=== PATIENT | female | born 1975 | race Caucasian/White ===

== ENCOUNTER → 2016-04-13 | Outpatient (CLI) | payer MEDICARE, OTHER ==
--- NOTE | 2016-04-13 08:48 | XR ---
EXAMINATION TYPE: XR knee limited RT DATE OF EXAM: 04/13/2016 8:42 AM CLINICAL HISTORY: pain TECHNIQUE: Two views of the right knee are obtained. COMPARISON: None. FINDINGS: There is no acute fracture/dislocation. The tri-compartment joint spaces appear within no rmal limits. The overlying soft tissue appears unremarkable. IMPRESSION: There is no acute fracture or dislocation. ICD 10 NO FRACTURE, INITIAL EVALUATION
--- NOTE | 2016-04-13 09:13 | MR ---
EXAMINATION TYPE: MR lumbar spine wo con DATE OF EXAM: 04/13/2016 8:19 AM COMPARISON: 07/10/2013 HISTORY: 40-year-old female with lumbago, back and leg pain TECHNIQUE: Multiplanar, multisequence images of the lumbar spine were acquired. Findings: Vertebral body heights are preserved and alignment is maintained. Variable mild desiccation of the intervertebral discs and mild disc bulging. Scattered mild ligamentum flavum thickening. Additional facet arthropathy mid to lower lumbar spine. There is some desiccation and mild disc height loss within the visualized lower thoracic spine as wel l with a stable right paracentral disc protrusion at T11-T12 which minimally contacts and indents the right ventral cord but does not cause any significant spinal canal stenosis. There may be a posterio r annular fissure here as well. The overall size of the disc protrusion is not significantly changed. No suspicious bone marrow replacement. Conus medullaris is normal. At T12-L1, minimal bulging disc without significant canal or foraminal stenosis. At L1-L2, small right paracentral disc protrusion without canal or foraminal stenosis. At L2-L3, very mild bulging disc minimally encroaching onto the bilateral inferior neural foramina. N o significant canal or foraminal stenosis. At L3-L4, minimal bulging discs minimally encroaching onto the inferior right neural foramen. No spin al canal stenosis. At L4-L5, there is bulging disc and facet degenerative change. Minimal bilateral inferior neuroforami nal narrowing without significant spinal canal stenosis. At L5-S1, mild facet degenerative change. No spinal canal or foraminal stenosis. No prevertebral or paravertebral soft tissue abnormality seen. IMPRESSION: 1. Mild multilevel degenerative disc disease with slight interval progression in variable mild disc d esiccation. 2. The degree of mild multilevel disc bulging is relatively similar. These disc bulges cause minimal inferior neural foraminal narrowing as outlined above. 3. No significant spinal canal or neuroforaminal stenosis. 4. A right paracentral disc protrusion at T11-T12 was also present previously abutting and minimally indenting the ventral cord but not causing any mark cord compression or canal compromise. A posterio r annular fissure is present here as well.
== END | disposition home or self-care (01) ==
LOC: RADMRIMAIN 07:44
PROVIDERS: ATTEND Psychiatry & Neurology Pain Medicine
DX: M51.36 Other intervertebral disc degeneration, lumbar region (principal); M51.26 Other intervertebral disc displacement, lumbar region; M51.24 Other intervertebral disc displacement, thoracic region; Z88.5 Allergy status to narcotic agent
CPT/HCPCS: 72148

== ENCOUNTER → 2016-04-23 | Outpatient (CLI) | payer MEDICARE, OTHER ==
[2016-04-23 12:10] LABS: Basophils # (A) 0.1 k/uL (0-0.2); Basophils % (A) 2 %; CH 28.5; CHCM 32.1; Eosinophils # (A) 0.3 k/uL (0-0.7); Eosinophils % (A) 3 %; HCT 45.8 % (34.0-46.0); HDW 2.44; HGB 14.7 gm/dL (11.4-16.0); Luc # (Auto) 0.12; Luc % (Auto) 1; Lymphocytes # (A) 2.8 k/uL (1.0-4.8); Lymphocytes % (A) 30 %; MCH 28.7 pg (25.0-35.0); MCHC 32.1 g/dL (31.0-37.0); MCV 89.4 fL (80.0-100.0); Mean Platelet Volume 8.1; Monocytes # (A) 0.5 k/uL (0-1.0); Monocytes % (A) 5 %; Neutrophils # (A) 5.8 k/uL (1.3-7.7); Neutrophils % (A) 60 %; RBC 5.13 m/uL (3.80-5.40); RDW 13.5 % (11.5-15.5); WBC 9.6 k/uL (3.8-10.6); WBC (Perox) 9.29
[2016-04-23 12:29] LABS: ALT 35 U/L (9-52); AST 20 U/L (14-36); Alkaline Phosphatase 149 U/L (38-126); Anion Gap 10 mmol/L; Blood Urea Nitrogen 9 mg/dL (7-17); C Reactive Protein 20.4 mg/L (<10.0); Calcium 9.8 mg/dL (8.4-10.2); Carbon Dioxide 26 mmol/L (22-30); Chloride 108 mmol/L (98-107); Creatine Kinase 24 U/L (30-135); Glucose 98 mg/dL (74-99); Magnesium 2.2 mg/dL (1.6-2.3); Non-African American GFR(MDRD) >60 (>60 ml/min/1.73 sqM); Sodium 144 mmol/L (137-145); Total Bilirubin 0.4 mg/dL (0.2-1.3); Total Protein 7.2 g/dL (6.3-8.2)
[2016-04-23 12:46] LABS: Hemoglobin A1C 5.7 % (4.2-6.1)
[2016-04-23 13:14] LABS: Vitamin B12 511 pg/mL (239-931)
[2016-04-23 14:02] LABS: Erythrocyte Sedimentation Rate 72 mm/hr (0-20)
[2016-04-26 05:49] LABS: Vitamin E (Alpha Tocopherol) 1554 ug/dL (500-1800)
[2016-04-26 07:40] LABS: Cyclic Citrullinated Pep IgG 11 UNITS (<20)
[2016-04-29 20:04] LABS: Nicotinamide 12 ng/mL; Nicotinic Acid None Detected; Nicotinuric Acid None Detected
[2016-05-02 13:37] LABS: Vitamin K 289 pg/mL (80-1160)
== END | disposition home or self-care (01) ==
LOC: LABWHC1 11:29
PROVIDERS: ATTEND Psychiatry & Neurology Pain Medicine
DX: G89.4 Chronic pain syndrome (principal); M79.7 Fibromyalgia
CPT/HCPCS: 36415; 80053; 82306; 82550; 82607; 83036; 83519; 83735; 84207; 84425; 84446; 84590; 84591; 84597; 85025; 85652; 86140; 86200

== ENCOUNTER 2016-10-07 15:41 | Emergency (ER) | payer MEDICARE, OTHER ==
[2016-10-07 15:53] VITALS: RESP 18
[2016-10-07] MEDS ORDERED: ONDANSETRON ODT 4 MG TAB PO STA (16:20)
[2016-10-07] MEDS ORDERED: HYDROmorphone 1 MG/ML 1 ML SYRINGE IM STA (16:20)
[2016-10-07] MEDS ORDERED: HYDROmorphone 1 MG/ML 1 ML SYRINGE IVP STA ×2 (16:30→17:44)
[2016-10-07] MEDS ORDERED: ONDANSETRON 4 MG/2 ML VIAL IVP STA (16:30)
[2016-10-07 17:00] LABS: Basophils # (A) 0.1 k/uL (0-0.2); Basophils % (A) 1 %; CH 27.9; CHCM 32.5; Eosinophils # (A) 0.3 k/uL (0-0.7); Eosinophils % (A) 2 %; HCT 44.9 % (34.0-46.0); HDW 2.33; Luc # (Auto) 0.14; Luc % (Auto) 1; Lymphocytes # (A) 3.5 k/uL (1.0-4.8); Lymphocytes % (A) 30 %; MCH 28.9 pg (25.0-35.0); MCHC 33.5 g/dL (31.0-37.0); MCV 86.1 fL (80.0-100.0); Mean Platelet Volume 6.9; Monocytes # (A) 0.5 k/uL (0-1.0); Monocytes % (A) 4 %; Neutrophils # (A) 7.2 k/uL (1.3-7.7); Neutrophils % (A) 62 %; RBC 5.21 m/uL (3.80-5.40); RDW 13.4 % (11.5-15.5); WBC 11.7 k/uL (3.8-10.6); WBC (Perox) 11.26
--- NOTE | 2016-10-07 17:00 | ED ---
Head Injury HPI - General Chief complaint: Head Injury Stated complaint: Fall/Head injury Time Seen by Provider: 10/07/16 16:04 Source: patient Mode of arrival: ambulatory Limitations: no limitations - History of Present Illness Initial comments: 40-year-old female fell yesterday about 12:30 PM she was standing on the feet sensory and then she lost her balance and fell from a height of about [address] down and she hit her head on the right side against the wooden coffee table and the right shoulder hit the floor right shoulder flexion and she moves she has a headache and neck hurt when she moves her head from [id number]. She denies loss consciousness she been nauseous no vomiting her vision is clear but she has a headache she has a history and she is unsteady on her feet. She denies any palpitation or chest pain before the fall or even now or shortness of breath no frequency urgency dysuria she is complaining about right ear pain which she thinks is just a bruise she is able to walk she is able to bear weight but of system is Place: home - Related Data Home Medications Medication Instructions Recorded Confirmed HYDROcodone/APAP 10-325MG [[place] 1 tab PO BID PRN 07/16/14 10/07/16 10] Ibuprofen [Motrin] 800 mg PO Q8HR PRN 07/16/14 10/07/16 Topiramate [Topamax] 50 mg PO BID 07/16/14 10/07/16 lamoTRIgine [LaMICtal] 100 mg PO HS 07/16/14 10/07/16 Cyclobenzaprine [Flexeril] 10 mg PO TID PRN 10/07/16 10/07/16 PARoxetine HCL [Paxil Cr] 25 mg PO DAILY 10/07/16 10/07/16 Previous Rx's Medication Instructions Recorded HYDROcodone/APAP 10-325MG [[place] 1 tab PO Q6H PRN #15 tab 10/07/16 10-325] Allergies/Adverse reactions: Allergies Allergy/AdvReac Type Severity Reaction Status Date / Time adhesive Allergy Rash/Hives Verified 10/07/16 16:59 Bleach (Sodium Hypochlorite) Allergy Unknown Verified 10/07/16 16:59 codeine phosphate AdvReac ringing Verified 10/07/16 16:59 [From Tylenol-Codeine #3] ears Review of Systems ROS Statement: Those systems with pertinent positive or pertinent negative responses have been documented in the HPI. ROS Other: All systems not noted in ROS Statement are negative. Past Medical History Past Medical History: Musculoskeletal Disorder Additional Past Medical History / Comment(s): hx. migraines, herniated discs neck & back, frequent sinus infections History of Any Multi-Drug Resistant Organisms: None Reported Past Surgical History: Adenoidectomy, Section, Cholecystectomy, Hysterectomy, Tonsillectomy Additional Past Surgical History / Comment(s): laparoscopy, D & C, sinus surgery Past Anesthesia/Blood Transfusion Reactions: Motion Sickness, Postoperative Nausea & Vomiting (PONV) Past Psychological History: Bipolar Smoking Status: Current every day smoker Past Alcohol Use History: None Reported Past Drug Use History: None Reported - Past Family History Mother Family Medical History: No Reported History General Exam - General Exam Comments Initial Comments: General: The patient is awake and alert, in no distress, and does not appear acutely ill. GCS is 15 Skin: Skin is warm and dry and no rashes or lesions are noted. Eye: Pupils are equal, round and reactive to light, extra-ocular movements are intact; there is normal conjunctiva bilaterally. Ears, nose, mouth and throat: There are moist mucous membranes and no oral lesions. Neck: The neck is supple, there is tenderness over L4 and L5, she is also tender over the right paraspinal area over the right transverse process Cardiovascular: There is a regular rate and rhythm. No murmur, rub or gallop is appreciated. Respiratory: To auscultation bilateral, no wheezing no rhonchi no distress respiratory aguilar noticed Gastrointestinal: Soft, non-distended, non-tender abdomen without masses or organomegaly noted. There is no rebound or guarding present. Bowel sounds are unremarkable. Back: There is no tenderness to palpation in the midline. There is no obvious deformity. Musculoskeletal: Normal ROM, no tenderness, There is no pedal edema. There is no calf tenderness or swelling. No cords were appreciated. She is tender over the right greater trochanter and range of motion at the left hip is quite no pain with flexion and extension or internal or external rotation Neurological: CN II-XII intact, Cranial nerves III through XII are intact. There are no obvious motor or sensory deficits. Coordination appears grossly intact. Speech is normal. Psychiatric: Cooperative, appropriate mood & affect, normal judgment. Limitations: no limitations Course Vital Signs 10/07/16 10/07/16 15:48 18:11 Temperature 99.9 F H Pulse Rate 98 99 Respiratory 18 18 Rate Blood Pressure 136/91 147/89 O2 Sat by Pulse 99 95 Oximetry Disposition reassessed at 1725, CBC and compressive metabolic panel are unremarkable head CT and cervical spine CAT scans are pending at this point Medical Decision Making - Lab Data Result diagrams: 10/07/16 16:40 10/07/16 16:40 Lab Results 10/07/16 10/07/16 Range/Units 16:40 16:40 WBC 11.7 H (3.8-10.6) k/uL RBC 5.21 (3.80-5.40) m/uL Hgb 15.0 (11.4-16.0) gm/dL Hct 44.9 (34.0-46.0) % MCV 86.1 (80.0-100.0) fL MCH 28.9 (25.0-35.0) pg MCHC 33.5 (31.0-37.0) g/dL RDW 13.4 (11.5-15.5) % Plt Count 465 H (150-450) k/uL Neutrophils % 62 % Lymphocytes % 30 % Monocytes % 4 % Eosinophils % 2 % Basophils % 1 % Neutrophils # 7.2 (1.3-7.7) k/uL Lymphocytes # 3.5 (1.0-4.8) k/uL Monocytes # 0.5 (0-1.0) k/uL Eosinophils # 0.3 (0-0.7) k/uL Basophils # 0.1 (0-0.2) k/uL Sodium 140 (137-145) mmol/L Potassium 4.3 (3.5-5.1) mmol/L Chloride 107 (98-107) mmol/L Carbon Dioxide 23 (22-30) mmol/L Anion Gap 10 mmol/L BUN 5 L (7-17) mg/dL Creatinine 0.77 (0.52-1.04) mg/dL Est GFR (MDRD) Af Amer >60 (>60 ml/min/1.73 sqM) Est GFR (MDRD) Non-Af >60 (>60 ml/min/1.73 sqM) Glucose 95 (74-99) mg/dL Calcium 9.5 (8.4-10.2) mg/dL Total Bilirubin 0.4 (0.2-1.3) mg/dL AST 24 (14-36) U/L ALT 39 (9-52) U/L Alkaline Phosphatase 140 H (38-126) U/L Total Protein 7.4 (6.3-8.2) g/dL Albumin 4.3 (3.5-5.0) g/dL Disposition Clinical Impression: Fall, Head injury, Neck injury, Shoulder injury Disposition: HOME SELF-CARE Condition: Good Instructions: Concussion (ED) Prescriptions: HYDROcodone/APAP 10-325MG [[place] 10-325] 1 tab PO Q6H PRN #15 tab PRN Reason: Pain Referrals: Gretchen Page MD [Primary Care Provider] - 1-2 days
[2016-10-07 17:09] LABS: ALT 39 U/L (9-52); AST 24 U/L (14-36); Alkaline Phosphatase 140 U/L (38-126); Anion Gap 10 mmol/L; Blood Urea Nitrogen 5 mg/dL (7-17); Calcium 9.5 mg/dL (8.4-10.2); Carbon Dioxide 23 mmol/L (22-30); Chloride 107 mmol/L (98-107); Glucose 95 mg/dL (74-99); Non-African American GFR(MDRD) >60 (>60 ml/min/1.73 sqM); Potassium 4.3 mmol/L (3.5-5.1); Sodium 140 mmol/L (137-145); Total Bilirubin 0.4 mg/dL (0.2-1.3); Total Protein 7.4 g/dL (6.3-8.2)
--- NOTE | 2016-10-07 17:31 | CT ---
EXAMINATION TYPE: CT brain dominique waterman DATE OF EXAM: 10/07/2016 COMPARISON: NONE HISTORY: Fall with head injury [address] DLP: 1168.5 mGycm Automated exposure control for dose reduction was used. TECHNIQUE: CT scan of the head and cervical spine are performed without contrast. FINDINGS: Ventricles and sulci appear normal. There is no mass effect nor midline shift. There is n o sign of intracranial hemorrhage. The calvarium is intact. There is mild mucosal thickening in the e thmoid air cells. Cervical vertebra have normal spacing and alignment. Posterior elements are intact. Facet joints are intact. The skull base is intact. There is no evidence of a fracture. IMPRESSION: Normal CT scan of the brain. Normal CT scan of the cervical spine.
[2016-10-07] MEDS ORDERED: MAG HYDROX/AL HYDROX/SIMETH 30 ML, HYOSCYAMINE ELIXIR 10 ML, CIMETIDINE HCL 300 MG PO STA ×3 (17:45)
--- NOTE | 2016-10-07 18:55 | XR ---
EXAMINATION TYPE: XR shoulder complete RT DATE OF EXAM: 10/07/2016 COMPARISON: NONE HISTORY: Shoulder pain TECHNIQUE: 3 views FINDINGS: I see no fracture nor dislocation. Joint spaces are fairly normal. There is extensive calci fication in the subacromial joint space. This measures 2.4 cm in length. IMPRESSION: There is evidence of severe calcific tendinitis with large calcification in the subacromi al joint space. No fracture seen.
[2016-10-07 19:16] VITALS: BP 130/80; PULSE 90; TEMP 98.7
== END 2016-10-07 19:14 | disposition home or self-care (01) ==
LOC: EC 15:41
DX: S09.90XA Unspecified injury of head, initial encounter (principal); S19.9XXA Unspecified injury of neck, initial encounter; S49.91XA Unspecified injury of right shoulder and upper arm, initial encounter; F31.9 Bipolar disorder, unspecified; R40.2412 Glasgow coma scale score 13-15, at arrival to emergency department; Z91.048 Other nonmedicinal substance allergy status; Z88.5 Allergy status to narcotic agent; Z88.6 Allergy status to analgesic agent; Z91.09 Other allergy status, other than to drugs and biological substances; F17.200 Nicotine dependence, unspecified, uncomplicated; Z79.899 Other long term (current) drug therapy; W17.89XA Other fall from one level to another, initial encounter
CPT/HCPCS: 99284; 96374; 96376; 96375; 36415; 80053; 85025; 73030; 72125; 70450; J2405; J1170

== ENCOUNTER 2017-09-08 12:40 | Emergency (ER) | payer MEDICARE, OTHER ==
[2017-09-08 13:05] VITALS: BP 121/89; PULSE 95; RESP 18; TEMP 98.3
--- NOTE | 2017-09-08 13:27 | ED ---
General Adult HPI - General Chief complaint: Extremity Injury, Upper Stated complaint: right shoulder pain Time Seen by Provider: 09/08/17 13:09 Source: patient, RN notes reviewed Mode of arrival: ambulatory Limitations: no limitations - History of Present Illness Initial comments: This is a 41-year-old female who presents to the emergency department with chief complaint of right shoulder pain. Patient states that she has been experiencing right shoulder pain for the past 3 weeks after she reached for her dog. Patient states that the pain is progressively worsened. She states that she did get an x-ray of her shoulder a year ago and that it showed calcific tendinitis in her right shoulder. She states that she followed up with the shoulder doctor in [place] and they suggested therapy involving needles. Patient states that she never followed through with this. She states she believes this may be related to the calcific tendinitis. She states that her right shoulder locks up and that she feels pain extending down into her bicep. Patient states that she's been having difficulty sleeping due to the pain. She states that she's been taking ibuprofen, [place] and applying ice and heat. She states that nothing is elbow. Patient denies any significant injuries other than reaching forward for her dog 3 weeks ago. She denies recent fevers or chills, chest pain or shortness of breath, abdominal pain, nausea or vomiting, numbness or tingling. - Related Data Home Medications Medication Instructions Recorded Confirmed HYDROcodone/APAP 10-325MG [[place] 1 tab PO BID PRN 07/16/14 10/07/16 10] Ibuprofen [Motrin] 800 mg PO Q8HR PRN 07/16/14 10/07/16 Topiramate [Topamax] 50 mg PO BID 07/16/14 10/07/16 lamoTRIgine [LaMICtal] 100 mg PO HS 07/16/14 10/07/16 Cyclobenzaprine [Flexeril] 10 mg PO TID PRN 10/07/16 10/07/16 PARoxetine HCL [Paxil Cr] 25 mg PO DAILY 10/07/16 10/07/16 Previous Rx's Medication Instructions Recorded HYDROcodone/APAP 10-325MG [[place] 1 tab PO Q6H PRN #15 tab 10/07/16 10-325] Allergies Allergy/AdvReac Type Severity Reaction Status Date / Time adhesive Allergy Rash/Hives Verified 09/08/17 13:05 Bleach (Sodium Hypochlorite) Allergy Unknown Verified 10/07/16 16:59 codeine phosphate AdvReac ringing Verified 10/07/16 16:59 [From Tylenol-Codeine #3] ears Review of Systems ROS Statement: Those systems with pertinent positive or pertinent negative responses have been documented in the HPI. ROS Other: All systems not noted in ROS Statement are negative. Past Medical History Past Medical History: Musculoskeletal Disorder Additional Past Medical History / Comment(s): hx. migraines, herniated discs neck & back, frequent sinus infections History of Any Multi-Drug Resistant Organisms: None Reported Past Surgical History: Adenoidectomy, Section, Cholecystectomy, Hysterectomy, Tonsillectomy Additional Past Surgical History / Comment(s): laparoscopy, D & C, sinus surgery Past Anesthesia/Blood Transfusion Reactions: Motion Sickness, Postoperative Nausea & Vomiting (PONV) Past Psychological History: Bipolar Smoking Status: Current every day smoker Past Alcohol Use History: None Reported Past Drug Use History: None Reported - Past Family History Mother Family Medical History: No Reported History General Exam - General Exam Comments Initial Comments: General: Awake and alert, well-developed; in no apparent distress. HEENT: Head atraumatic, normocephalic. Pupils are equal, round and reactive to light. Extraocular movements intact. Oropharynx moist without erythema or exudate. Neck: Supple. Normal ROM. Cardiovascular: Regular rate and rhythm. No murmurs, rubs or gallops. Chest symmetrical. Respiratory: Lungs clear to auscultation bilaterally. No wheezes, rales or rhonchi. Normal respiratory effort with no use of accessory muscles. Musculoskeletal: Limited range of motion of the right shoulder with flexion and abduction due to pain. There is tenderness over the coracoid process and AC joint. Sensation is intact. Radial pulses are 2+ equal and palpable bilaterally. Skin: [place], warm and dry without rashes or lesions. Neurological: Alert and oriented x3. CN II-XII grossly intact. Speech is fluent and answers are appropriate. No focal neuro deficits. Psychiatric: Patient is anxious. Limitations: no limitations Course Vital Signs 09/08/17 13:02 Temperature 98.3 F Pulse Rate 95 Respiratory 18 Rate Blood Pressure 121/89 O2 Sat by Pulse 98 Oximetry Medical Decision Making - Medical Decision Making This is a 41-year-old female who presents to the emergency department with chief complaint of right shoulder pain. Patient states that she was diagnosed with calcific tendinitis approximately one year ago. She states that she did follow up with a shoulder specialist in [place] who suggested a needle type therapy and patient has yet to follow through with therapy. She states that 3 weeks ago she reached for her dog and since that time has had progressive worsening of pain in the right shoulder. I did review patient's previous shoulder x-ray that was performed on 10/07/2016. It revealed evidence of severe calcific tendinitis with a large calcification in the subacromial joint space of the right shoulder. Patient does have limited range of motion of the right shoulder due to pain, and she states that it "locks up" with movement. A shoulder x-ray was performed during this visit which redemonstrated severe/ extensive calcific tendinitis within the right rotator cuff. Recommended anti- inflammatories and ice. Recommended follow up with orthopedics for further evaluation and treatment. Patient provided with contact information. She is in agreement with plan and voices understanding. She is in no acute distress and will be discharged home at this time. all questions answered. - Radiology Data Radiology results: report reviewed Please take medications as prescribed. Please follow up with primary care provider within 1-2 days. Return to emergency department if symptoms should worsen or any concerns arise. Disposition Clinical Impression: Calcific tendinitis of right shoulder Disposition: HOME SELF-CARE Condition: Good Instructions: Calcific Tendinitis (ED) Additional Instructions: please follow-up with [facility] within 1-2 days. Please rest, ice and take anti-inflammatories as needed. Please follow up with primary care provider within 1-2 days. Return to emergency department if symptoms should worsen or any concerns arise. Is patient prescribed a controlled substance at d/c from ED?: No Referrals: Gretchen Page MD [Primary Care Provider] - 1-2 days Coby Tatum PAC [PHYSICIAN CO[employer] MACHINE HELPER] - 1-2 days Time of Disposition: 14:10
--- NOTE | 2017-09-08 13:48 | XR ---
EXAMINATION TYPE: XR shoulder complete RT DATE OF EXAM: 09/08/2017 CLINICAL HISTORY: Right shoulder pain TECHNIQUE: Three views of the right shoulder are obtained. COMPARISON: 10/07/2016 FINDINGS: There is no acute fracture/dislocation evident in the right shoulder. There is redemonstra tion of an elongated calcifications within the subacromial joint space. The acromioclavicular and gle nohumeral joint spaces appear within normal limits. The visualized ribs are intact and unremarkable. IMPRESSION: There is no acute fracture or dislocation in the right shoulder. Redemonstration of richelle re/extensive calcific tendinitis of the rotator cuff.
[2017-09-08] MEDS ORDERED: KETOROLAC 30 MG/ML 1 ML VIAL IM STA (14:18)
== END 2017-09-08 14:27 | disposition home or self-care (01) ==
LOC: EC 12:40
DX: M75.31 Calcific tendinitis of right shoulder (principal); F31.9 Bipolar disorder, unspecified; F17.200 Nicotine dependence, unspecified, uncomplicated; Z79.899 Other long term (current) drug therapy; Z91.048 Other nonmedicinal substance allergy status; Z88.5 Allergy status to narcotic agent; Z88.6 Allergy status to analgesic agent; Z88.8 Allergy status to other drugs, medicaments and biological substances
CPT/HCPCS: 99283 ×2; 96372 ×2; 73030; J1885

== ENCOUNTER → 2018-12-18 | Outpatient (CLI) | payer MEDICARE ==
[2018-12-18 18:47] LABS: Total Protein,CSF 50 mg/dL (12-60)
[2018-12-18 21:07] LABS: Appearance,CSF Clear; CSF Tube Number 3; CSF Tube Volume 2.5; Nucleated Cells, CSF 0 u/L (0-5); Red Blood Cell,CSF 0 u/L (0-10)
[2018-12-19 14:48] LABS: IgG - CSF 1.6 mg/dL (0.0 - 3.4); IgG/Albumin Index (CSF) 0.41 (0.00 - 0.77); Immunoglobulin G 593 mg/dL (700 - 1600)
== END | disposition home or self-care (01) ==
LOC: LABWHC1 13:20
PROVIDERS: ATTEND Psychiatry & Neurology Pain Medicine
DX: R90.82 White matter disease, unspecified (principal)
CPT/HCPCS: 36415; 82040; 82042; 82784; 83873; 83916; 84157; 87801; 89050

== ENCOUNTER → 2019-02-28 | Outpatient (CLI) | payer MEDICARE ==
[2019-02-28 14:56] LABS: HCT 42.7 % (34.0-46.0); HGB 13.7 gm/dL (11.4-16.0); MCV 87.3 fL (80.0-100.0); Mean Platelet Volume 6.9; Platelet Count 350 k/uL (150-450); RBC 4.88 m/uL (3.80-5.40); WBC 7.5 k/uL (3.8-10.6)
[2019-02-28 18:51] LABS: % Iron Saturation 41.72 (12.00-45.00)
[2019-02-28 19:00] LABS: Ferritin 25.5 ng/mL (10.0-291.0)
[2019-02-28 19:08] LABS: Folate, Serum 11.2 ng/mL
[2019-03-04 08:30] LABS: Vit B1(Thiamine) 66 ug/L (38-122)
[2019-03-07 07:11] LABS: Nicotinamide 11 ng/mL; Nicotinic Acid None Detected; Nicotinuric Acid None Detected
== END | disposition home or self-care (01) ==
LOC: LABWHC1 14:17
PROVIDERS: ATTEND Psychiatry & Neurology Pain Medicine
DX: D64.9 Anemia, unspecified (principal); R53.83 Other fatigue
CPT/HCPCS: 36415; 82607; 82668; 82728; 82746; 83540; 83550; 84207; 84425; 84439; 84443; 84466; 84481; 84591; 85027; 85045

== ENCOUNTER 2019-10-14 16:13 | Emergency (ER) | payer MEDICARE ==
--- NOTE | 2019-10-14 17:09 | ED ---
Dizziness HPI - General Chief Complaint: Dizziness Stated Complaint: fever Time Seen by Provider: 10/14/19 16:31 Source: patient Mode of arrival: ambulatory Limitations: no limitations - History of Present Illness Initial Comments: The patient is a 43-year-old female with past medical history of migraines, frequent sinus infections and mood disorder who presents to the emergency department with multiple complaints. Patient reports that she has felt off balance for the past week. States upon standing she has difficulty walking a straight line. Also reports to left-sided ear pain and discharge. Feels that she has a lot of discharge going into the back or throat. Reports she's had difficulty controlling her blood pressures and they've been low, around 110/70. She does report to the nurse that this has been going on for greater than 3 weeks. She is concerned that possibly due to being off of her medications. Reports her primary care doctor did not fill her prescriptions for her Lamictal and Paxil. One week ago she had a sudden onset of the headache with aura. States this is common for her. Headache has improved however she has remained with the patient that she is off balance. No history of strokes. Denies any chest pain or shortness of breath. No weakness in her extremities. No unilateral weakness. No nausea or vomiting. No chest pain or shortness of breath. 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, precipitating or modifying factors - Related Data Home Medications Medication Instructions Recorded Confirmed HYDROcodone/APAP 10-325MG [[place] 1 tab PO BID PRN 07/16/14 10/07/16 10] Ibuprofen [Motrin] 800 mg PO Q8HR PRN 07/16/14 10/07/16 Topiramate [Topamax] 50 mg PO BID 07/16/14 10/07/16 lamoTRIgine [LaMICtal] 100 mg PO HS 07/16/14 10/07/16 Cyclobenzaprine [Flexeril] 10 mg PO TID PRN 10/07/16 10/07/16 PARoxetine HCL [Paxil Cr] 25 mg PO DAILY 10/07/16 10/07/16 Previous Rx's Medication Instructions Recorded HYDROcodone/APAP 10-325MG [[place] 1 tab PO Q6H PRN #15 tab 10/07/16 10-325] Allergies Allergy/AdvReac Type Severity Reaction Status Date / Time adhesive Allergy Rash/Hives Verified 10/14/19 16:23 Bleach (Sodium Hypochlorite) Allergy Unknown Verified 10/14/19 16:23 codeine phosphate AdvReac ringing Verified 10/14/19 16:23 [From Tylenol-Codeine #3] ears Review of Systems ROS Statement: Those systems with pertinent positive or pertinent negative responses have been documented in the HPI. ROS Other: All systems not noted in ROS Statement are negative. Past Medical History Past Medical History: Musculoskeletal Disorder Additional Past Medical History / Comment(s): hx. migraines, herniated discs neck & back, frequent sinus infections History of Any Multi-Drug Resistant Organisms: None Reported Past Surgical History: Adenoidectomy, Section, Cholecystectomy, Hysterectomy, Tonsillectomy Additional Past Surgical History / Comment(s): laparoscopy, D & C, sinus surgery Past Anesthesia/Blood Transfusion Reactions: Motion Sickness, Postoperative Nausea & Vomiting (PONV) Past Psychological History: Bipolar Smoking Status: Vaper Past Alcohol Use History: None Reported Past Drug Use History: None Reported - Past Family History Mother Family Medical History: No Reported History General Exam Limitations: no limitations General appearance: alert, in no apparent distress Head exam: Present: atraumatic, normocephalic, normal inspection Eye exam: Present: normal appearance, PERRL, EOMI. Absent: scleral icterus, conjunctival injection, periorbital swelling ENT exam: Present: normal exam, mucous membranes moist Neck exam: Present: normal inspection. Absent: tenderness, meningismus, lymphadenopathy Respiratory exam: Present: normal lung sounds bilaterally. Absent: respiratory distress, wheezes, rales, rhonchi, stridor Cardiovascular Exam: Present: regular rate, normal rhythm, normal heart sounds. Absent: systolic murmur, diastolic murmur, rubs, gallop, clicks GI/Abdominal exam: Present: soft, normal bowel sounds. Absent: distended, tend erness, guarding, rebound, rigid Extremities exam: Present: normal inspection, full ROM, normal capillary refill. Absent: tenderness, pedal edema, joint swelling, calf tenderness Back exam: Present: normal inspection Neurological exam: Present: alert, oriented X3, CN II-XII intact Psychiatric exam: Present: normal affect, normal mood Skin exam: Present: warm, dry, intact, normal color. Absent: rash Course Vital Signs 10/14/19 10/14/19 10/14/19 16:17 18:07 18:47 Temperature 97.7 F 98.6 F Pulse Rate 84 80 85 Respiratory 18 18 16 Rate Blood Pressure 125/80 101/71 98/75 O2 Sat by Pulse 98 99 98 Oximetry EKG Findings - EKG Comments: EKG Findings:: EKG demonstrates normal sinus rhythm with a ventricular rate of 74. OH interval 160. QRS 84. QTC 432. No acute ST segment depressions concerning for ischemic changes Medical Decision Making - Medical Decision Making Upon arrival the patient is placed into room 6. A thorough history and physical exam was performed. NIH stroke scale is performed and the patient scores a 0. Peripheral IV was established. Laboratory studies were conducted. 12-lead EKG was performed. Laboratory studies are unremarkable. Urinalysis has small blood in it. I sent the patient over for a CT of her brain as well as CT angiography and a chest x-ray. 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 No aneurysmal change. No significant carotid disease. Chest x-ray demonstrates no acute cardio primary process. I did discuss results of the patient's CT angiography with Dr. Neri. He is concerned that her symptoms of ataxia or likely related to her migraine headache. Recommends treatment with sumatriptan which the patient already takes. Patient is pain-free at this time. Recommend she follow up with her neurologist within 1-2 weeks. Discussed with the patient. She will return for any worsening symptoms. The patient agreed to the treatment plan and she was discharged home in stable condition - Lab Data Result diagrams: 10/14/19 17:06 10/14/19 17:06 Lab Results 10/14/19 10/14/19 10/14/19 Range/Units 17:06 17:06 17:06 WBC 10.5 (3.8-10.6) k/uL RBC 4.99 (3.80-5.40) m/uL Hgb 13.7 (11.4-16.0) gm/dL Hct 43.7 (34.0-46.0) % MCV 87.6 (80.0-100.0) fL MCH 27.4 (25.0-35.0) pg MCHC 31.3 (31.0-37.0) g/dL RDW 13.3 (11.5-15.5) % Plt Count 362 (150-450) k/uL Neutrophils % 56 % Lymphocytes % 36 % Monocytes % 4 % Eosinophils % 3 % Basophils % 1 % Neutrophils # 5.8 (1.3-7.7) k/uL Lymphocytes # 3.8 (1.0-4.8) k/uL Monocytes # 0.4 (0-1.0) k/uL Eosinophils # 0.3 (0-0.7) k/uL Basophils # 0.1 (0-0.2) k/uL PT 10.1 (9.0-12.0) sec INR 1.0 (<1.2) Sodium (137-145) mmol/L Potassium (3.5-5.1) mmol/L Chloride (98-107) mmol/L Carbon Dioxide (22-30) mmol/L Anion Gap mmol/L BUN (7-17) mg/dL Creatinine (0.52-1.04) mg/dL Est GFR (CKD-EPI)AfAm (>60 ml/min/1.73 sqM) Est GFR (CKD-EPI)NonAf (>60 ml/min/1.73 sqM) Glucose (74-99) mg/dL Plasma Lactic Acid [place] (0.7-2.0) mmol/L Calcium (8.4-10.2) mg/dL Total Bilirubin (0.2-1.3) mg/dL AST (14-36) U/L ALT (4-34) U/L Alkaline Phosphatase (38-126) U/L Troponin I (0.000-0.034) ng/mL Total Protein (6.3-8.2) g/dL Albumin (3.5-5.0) g/dL TSH (0.465-4.680) mIU/L Urine Color Yellow Urine Appearance Clear (Clear) Urine pH 5.5 (5.0-8.0) Ur Specific [place] 1.018 (1.001-1.035) Urine Protein Negative (Negative) Urine Glucose (UA) Negative (Negative) Urine Ketones Negative (Negative) Urine Blood Small H (Negative) Urine Nitrite Negative (Negative) Urine Bilirubin Negative (Negative) Urine Urobilinogen <2.0 (<2.0) mg/dL Ur Leukocyte Esterase Negative (Negative) Urine RBC 1 (0-5) /hpf Urine WBC 1 (0-5) /hpf Ur Squamous Epith Cells <1 (0-4) /hpf Urine Mucus Rare H (None) /hpf 10/14/19 10/14/19 10/14/19 Range/Units 17:06 17:06 17:06 WBC (3.8-10.6) k/uL RBC (3.80-5.40) m/uL Hgb (11.4-16.0) gm/dL Hct (34.0-46.0) % MCV (80.0-100.0) fL MCH (25.0-35.0) pg MCHC (31.0-37.0) g/dL RDW (11.5-15.5) % Plt Count (150-450) k/uL Neutrophils % % Lymphocytes % % Monocytes % % Eosinophils % % Basophils % % Neutrophils # (1.3-7.7) k/uL Lymphocytes # (1.0-4.8) k/uL Monocytes # (0-1.0) k/uL Eosinophils # (0-0.7) k/uL Basophils # (0-0.2) k/uL PT (9.0-12.0) sec INR (<1.2) Sodium 140 (137-145) mmol/L Potassium 4.1 (3.5-5.1) mmol/L Chloride 106 (98-107) mmol/L Carbon Dioxide 23 (22-30) mmol/L Anion Gap 11 mmol/L BUN 10 (7-17) mg/dL Creatinine 0.96 (0.52-1.04) mg/dL Est GFR (CKD-EPI)AfAm 83 (>60 ml/min/1.73 sqM) Est GFR (CKD-EPI)NonAf 72 (>60 ml/min/1.73 sqM) Glucose 101 H (74-99) mg/dL Plasma Lactic Acid [place] 0.8 (0.7-2.0) mmol/L Calcium 9.5 (8.4-10.2) mg/dL Total Bilirubin 0.3 (0.2-1.3) mg/dL AST 41 H (14-36) U/L ALT 33 (4-34) U/L Alkaline Phosphatase 125 (38-126) U/L Troponin I <0.012 (0.000-0.034) ng/mL Total Protein 6.9 (6.3-8.2) g/dL Albumin 4.1 (3.5-5.0) g/dL TSH 2.690 (0.465-4.680) mIU/L Urine Color Urine Appearance (Clear) Urine pH (5.0-8.0) Ur Specific [place] (1.001-1.035) Urine Protein (Negative) Urine Glucose (UA) (Negative) Urine Ketones (Negative) Urine Blood (Negative) Urine Nitrite (Negative) Urine Bilirubin (Negative) Urine Urobilinogen (<2.0) mg/dL Ur Leukocyte Esterase (Negative) Urine RBC (0-5) /hpf Urine WBC (0-5) /hpf Ur Squamous Epith Cells (0-4) /hpf Urine Mucus (None) /hpf Disposition Clinical Impression: Dizziness, Medication withdrawal Disposition: HOME SELF-CARE Condition: Stable Instructions (If sedation given, give patient instructions): Dizziness (ED) Additional Instructions: Please follow up with the primary care doctor. Return to the emergency room for any new or worsening symptoms Is patient prescribed a controlled substance at d/c from ED?: No Referrals: None,Stated [Primary Care Provider] - 1-2 days Reyes Villalpando MD [Medical Doctor] - 1-2 days Time of Disposition: 18:36
[2019-10-14 17:21] LABS: Basophils # (A) 0.1 k/uL (0-0.2); Basophils % (A) 1 %; Eosinophils # (A) 0.3 k/uL (0-0.7); Eosinophils % (A) 3 %; HCT 43.7 % (34.0-46.0); HGB 13.7 gm/dL (11.4-16.0); Lymphocytes # (A) 3.8 k/uL (1.0-4.8); Lymphocytes % (A) 36 %; MCH 27.4 pg (25.0-35.0); MCHC 31.3 g/dL (31.0-37.0); MCV 87.6 fL (80.0-100.0); Mean Platelet Volume 7.3; Monocytes # (A) 0.4 k/uL (0-1.0); Monocytes % (A) 4 %; Neutrophils # (A) 5.8 k/uL (1.3-7.7); Neutrophils % (A) 56 %; Platelet Count 362 k/uL (150-450); RBC 4.99 m/uL (3.80-5.40); RDW 13.3 % (11.5-15.5); WBC 10.5 k/uL (3.8-10.6)
[2019-10-14 17:26] LABS: Prothrombin Time 10.1 sec (9.0-12.0)
[2019-10-14 17:30] LABS: Albumin 4.1 g/dL (3.5-5.0); Calcium 9.5 mg/dL (8.4-10.2); Potassium 4.1 mmol/L (3.5-5.1); Total Bilirubin 0.3 mg/dL (0.2-1.3); Total Protein 6.9 g/dL (6.3-8.2)
[2019-10-14 17:31] LABS: Appearance,Urine Clear (Clear); Bilirubin,Urine Negative (Negative); Blood,Urine Small (Negative); Color,Urine Yellow; Glucose,Urine (UA) Negative (Negative); Ketones,Urine Negative (Negative); Leukocyte Esterase,Urine Negative (Negative); Mucus,Urine Rare /hpf; Nitrite,Urine Negative (Negative); PH, Urine 5.5 (5.0-8.0); Protein,Urine Negative (Negative); RBC,Urine 1 /hpf (0-5); Specific Gravity,Urine 1.018 (1.001-1.035); Squamous Epithelial Cell,Urine <1 /hpf (0-4); Urobilinogen,Urine <2.0 mg/dL (<2.0); WBC,Urine 1 /hpf (0-5)
--- NOTE | 2019-10-14 17:34 | CT ---
EXAMINATION TYPE: CT brain wo con DATE OF EXAM: 10/14/2019 COMPARISON: 10/07/2016 HISTORY: 43-year-old female headache and dizziness TECHNIQUE: Examination was done in axial plane without intravenous contrast. Coronal and sagittal r econstructions performed. CT DLP: 1117.6 mGycm Automated exposure control for dose reduction was used. FINDINGS: There is no evidence of acute intracranial hemorrhage, acute ischemic changes, mass, mass-effect, or extra-axial fluid collection. There is no effacement of cerebral sulci or basal subarachnoid cister ns. There is no hydrocephalus. There is no midline shift. [place]-white matter distinction is preserv ed. Scattered mild to moderate mucosal thickening ethmoid air cells. Mastoid air cells well pneumatized. Orbits and globes are intact. IMPRESSION: No acute intracranial abnormality seen. Mild to moderate chronic ethmoid sinus disease.
--- NOTE | 2019-10-14 17:39 | XR ---
EXAMINATION TYPE: XR chest 2V DATE OF EXAM: 10/14/2019 COMPARISON: None HISTORY: 43-year-old female dizziness TECHNIQUE: PA and lateral views FINDINGS: The cardiomediastinal silhouette, aorta, and pulmonary vasculature are within normal limits. Lungs an d pleural spaces are clear. IMPRESSION: No acute cardiopulmonary process.
--- NOTE | 2019-10-14 17:47 | CT ---
EXAMINATION TYPE: CT angio head neck DATE OF EXAM: 10/14/2019 COMPARISON: Correlation CT brain same day HISTORY: 43-year-old female headache and dizziness TECHNIQUE: Contiguous axial scanning of the head and neck performed with IV Contrast, patient injecte d with 65cc mL of Isovue 370. Coronal/sagittal MIP reconstructions performed. 3-D reconstructions gen erated on a dedicated independent workstation. CT DLP: 367.7 mGycm Automated exposure control for dose reduction was used. FINDINGS: NECK: The origin of the arch vessels is excluded from the scan. The left vertebral artery is dominant. Both vertebral arteries are patent throughout the course. The right common and internal carotid arteries are widely patent. The left common and internal carotid arteries are widely patent with mild atherosclerotic plaque and calcification of the left bifurcation. Mild emphysematous change in the visualized upper lungs. HEAD: The vertebral and basilar arteries are patent as is the remainder of the posterior circulation. Mild atherosclerotic narrowing within the cavernous segment of the right internal carotid artery. More moderate to severe focal atrophy is chronic narrowing within the clinoid segment of the right in ternal carotid artery, narrowed down to approximately 1.5 mm. Refer to axial image 37. Some normal variation with a hypoplastic A1 segment right anterior cerebral artery. However, otherwis e, anterior circulation is patent. No aneurysmal change is seen. IMPRESSION: 1. NECK: NOTE THAT THE SCAN EXCLUDES THE ARCH VESSEL ORIGINS AND THEY ARE NOT ASSESSED. OTHERWISE, DO MINANT LEFT VERTEBRAL ARTERY. MILD ATHEROSCLEROTIC CHANGE OF THE LEFT BIFURCATION WITH LESS THAN 10% PROXIMAL LEFT ICA NARROWING. THE REMAINING CAROTID AND VERTEBRAL ARTERIES ARE WIDELY PATENT. 2. 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 ADDITIONAL MILD ATHEROSCLEROTIC NARROWING WITHIN THE CAVERNOUS SEGMENT RIGHT ICA. NO ANEURYSMAL VELEZ E IS SEEN.
[2019-10-14 18:48] VITALS: BP 98/75; PULSE 85; RESP 16; TEMP 98.6
== END 2019-10-14 18:47 | disposition home or self-care (01) ==
LOC: EC 16:13
DX: I65.21 Occlusion and stenosis of right carotid artery (principal); F19.939 Other psychoactive substance use, unspecified with withdrawal, unspecified; G43.909 Migraine, unspecified, not intractable, without status migrainosus; F31.9 Bipolar disorder, unspecified; J32.9 Chronic sinusitis, unspecified; H92.02 Otalgia, left ear; F17.290 Nicotine dependence, other tobacco product, uncomplicated; Z79.899 Other long term (current) drug therapy; Z91.048 Other nonmedicinal substance allergy status; Z88.5 Allergy status to narcotic agent; Z88.6 Allergy status to analgesic agent
CPT/HCPCS: 99284; 36415; 93005; 80053; 84443; 83605; 84484; 85025; 85610; 81001; 71046; 70496; 70450; 70498; Q9967

== ENCOUNTER 2019-10-29 18:21 | Emergency (ER) | payer MEDICARE ==
[2019-10-29 18:27] VITALS: RESP 18
[2019-10-29] MEDS ORDERED: PANTOPRAZOLE 40 MG/10 ML VIAL IVP STA (19:00)
--- NOTE | 2019-10-29 19:01 | ED ---
Abdominal Pain HPI - General Chief Complaint: Abdominal Pain Stated Complaint: abd pain Time Seen by Provider: 10/29/19 18:45 Source: patient Mode of arrival: ambulatory Limitations: no limitations - History of Present Illness Initial Comments: 43-year-old female presenting today for chief complaint of epigastric abdominal pain. Patient states the past week she has had diarrhea, epigastric pain. She's states that she has felt nauseated. Patient states that she has had more indigestion than normal. She denies any chest pain shortness of breath arm or jaw pain. Denies fevers, vomiting. Patient denies any black or tarry stools denies any bright red stools. Patient has a known history of peptic ulcers. Patient states she has had a previous cholecystectomy. Patient denies history of pancreatitis alcohol abuse denies any current steroid use. Patient states she has had increased life stressors. Denies lower abdominal pain. Patient appears well on arrival no acute distress. VS within acceptable limits. - Related Data Home Medications Medication Instructions Recorded Confirmed HYDROcodone/APAP 10-325MG [[place] 1 tab PO BID PRN 07/16/14 10/07/16 10] Ibuprofen [Motrin] 800 mg PO Q8HR PRN 07/16/14 10/07/16 Topiramate [Topamax] 50 mg PO BID 07/16/14 10/07/16 lamoTRIgine [LaMICtal] 100 mg PO HS 07/16/14 10/07/16 Cyclobenzaprine [Flexeril] 10 mg PO TID PRN 10/07/16 10/07/16 PARoxetine HCL [Paxil Cr] 25 mg PO DAILY 10/07/16 10/07/16 Previous Rx's Medication Instructions Recorded HYDROcodone/APAP 10-325MG [[place] 1 tab PO Q6H PRN #15 tab 10/07/16 10-325] Ondansetron Odt [Zofran Odt] 4 mg PO Q8HR PRN 3 Days #9 tab 10/29/19 Pantoprazole Sodium [Protonix] 40 mg PO DAILY 14 Days #14 10/29/19 tablet. Allergies Allergy/AdvReac Type Severity Reaction Status Date / Time adhesive Allergy Rash/Hives Verified 10/29/19 18:27 Bleach (Sodium Hypochlorite) Allergy Unknown Verified 10/29/19 18:27 codeine phosphate AdvReac ringing Verified 10/29/19 18:27 [From Tylenol-Codeine #3] ears Review of Systems ROS Statement: Those systems with pertinent positive or pertinent negative responses have been documented in the HPI. ROS Other: All systems not noted in ROS Statement are negative. Past Medical History Past Medical History: Musculoskeletal Disorder Additional Past Medical History / Comment(s): hx. migraines, herniated discs neck & back, frequent sinus infections History of Any Multi-Drug Resistant Organisms: None Reported Past Surgical History: Adenoidectomy, Section, Cholecystectomy, Hysterectomy, Tonsillectomy Additional Past Surgical History / Comment(s): laparoscopy, D & C, sinus surgery Past Anesthesia/Blood Transfusion Reactions: Motion Sickness, Postoperative Nausea & Vomiting (PONV) Past Psychological History: Bipolar Smoking Status: Vaper Past Alcohol Use History: None Reported Past Drug Use History: None Reported - Past Family History Mother Family Medical History: No Reported History General Exam - General Exam Comments Initial Comments: General: The patient is awake and alert, in no distress Eye: Pupils are equal, round and reactive to light, extra-ocular movements are intact. No nystagmus. There is normal conjunctiva bilaterally. No signs of icterus. Ears, nose, mouth and throat: There are moist mucous membranes and no oral lesions. Neck: The neck is supple, there is no tenderness or JVD. Cardiovascular: There is a regular rate and rhythm. No murmur, rub or gallop is appreciated. Respiratory: Lungs are clear to auscultation, respirations are non-labored, breath sounds are equal. No wheezes, stridor, rales, or rhonchi. Gastrointestinal: Soft, non-distended, epigastric tenderness to palpation of the abdomen, abdomen is without masses or organomegaly noted. There is no rebound or guarding present. No CVA tenderness. Bowel sounds are unremarkable.] Musculoskeletal: Normal ROM, no tenderness. Strength 5/5. Sensation intact. radidal pulses equal bilaterally 2+. Neurological: A&O x 3. CN II-XII intact grossly, There are no obvious motor or sensory deficits. Coordination appears grossly intact. Speech is normal. Skin: Skin is warm and dry and no rashes or lesions are noted. Psychiatric: Cooperative, appropriate mood & affect, normal judgment. Limitations: no limitations Course Vital Signs 10/29/19 10/29/19 18:23 20:46 Temperature 98.4 F 98.0 F Pulse Rate 93 90 Respiratory 18 18 Rate Blood Pressure 122/86 127/80 O2 Sat by Pulse 97 99 Oximetry Medical Decision Making - Medical Decision Making Labs stable. Epigastric pain on exam. CT revealing signs consistent with enteritis. Denies dark or bloodyy stools. Hgb stable. Patient at this time will trial Gi cocktail protonix/zofran outpatient with GI f/u. Is to return for increasing pain/concerning. Patient is agreeable to discharge and care plan as is attending Dr. [place]. - Lab Data Result diagrams: 10/29/19 18:53 10/29/19 18:53 Lab Results 10/29/19 10/29/19 10/29/19 Range/Units 18:53 18:53 18:53 WBC 11.2 H (3.8-10.6) k/uL RBC 4.97 (3.80-5.40) m/uL Hgb 13.7 (11.4-16.0) gm/dL Hct 43.2 (34.0-46.0) % MCV 86.9 (80.0-100.0) fL MCH 27.6 (25.0-35.0) pg MCHC 31.7 (31.0-37.0) g/dL RDW 12.7 (11.5-15.5) % Plt Count 462 H (150-450) k/uL Neutrophils % 58 % Lymphocytes % 33 % Monocytes % 5 % Eosinophils % 2 % Basophils % 1 % Neutrophils # 6.5 (1.3-7.7) k/uL Lymphocytes # 3.7 (1.0-4.8) k/uL Monocytes # 0.6 (0-1.0) k/uL Eosinophils # 0.2 (0-0.7) k/uL Basophils # 0.1 (0-0.2) k/uL Sodium 139 (137-145) mmol/L Potassium 4.1 (3.5-5.1) mmol/L Chloride 110 H (98-107) mmol/L Carbon Dioxide 23 (22-30) mmol/L Anion Gap 6 mmol/L BUN 10 (7-17) mg/dL Creatinine 0.88 (0.52-1.04) mg/dL Est GFR (CKD-EPI)AfAm >90 (>60 ml/min/1.73 sqM) Est GFR (CKD-EPI)NonAf 81 (>60 ml/min/1.73 sqM) Glucose 102 H (74-99) mg/dL Calcium 9.2 (8.4-10.2) mg/dL Total Bilirubin 0.3 (0.2-1.3) mg/dL AST 18 (14-36) U/L ALT 10 (4-34) U/L Alkaline Phosphatase 127 H (38-126) U/L Troponin I (0.000-0.034) ng/mL Total Protein 7.2 (6.3-8.2) g/dL Albumin 4.2 (3.5-5.0) g/dL Lipase 85 (23-300) U/L Urine Color Yellow Urine Appearance Cloudy H (Clear) Urine pH 6.5 (5.0-8.0) Ur Specific [place] 1.026 (1.001-1.035) Urine Protein Trace H (Negative) Urine Glucose (UA) Negative (Negative) Urine Ketones Negative (Negative) Urine Blood Trace H (Negative) Urine Nitrite Negative (Negative) Urine Bilirubin Negative (Negative) Urine Urobilinogen <2.0 (<2.0) mg/dL Ur Leukocyte Esterase Moderate H (Negative) Urine RBC 1 (0-5) /hpf Urine WBC 6 H (0-5) /hpf Ur Squamous Epith Cells 7 H (0-4) /hpf Amorphous Sediment Occasional H (None) /hpf Urine Mucus Occasional H (None) /hpf 10/29/19 Range/Units 19:02 WBC (3.8-10.6) k/uL RBC (3.80-5.40) m/uL Hgb (11.4-16.0) gm/dL Hct (34.0-46.0) % MCV (80.0-100.0) fL MCH (25.0-35.0) pg MCHC (31.0-37.0) g/dL RDW (11.5-15.5) % Plt Count (150-450) k/uL Neutrophils % % Lymphocytes % % Monocytes % % Eosinophils % % Basophils % % Neutrophils # (1.3-7.7) k/uL Lymphocytes # (1.0-4.8) k/uL Monocytes # (0-1.0) k/uL Eosinophils # (0-0.7) k/uL Basophils # (0-0.2) k/uL Sodium (137-145) mmol/L Potassium (3.5-5.1) mmol/L Chloride (98-107) mmol/L Carbon Dioxide (22-30) mmol/L Anion Gap mmol/L BUN (7-17) mg/dL Creatinine (0.52-1.04) mg/dL Est GFR (CKD-EPI)AfAm (>60 ml/min/1.73 sqM) Est GFR (CKD-EPI)NonAf (>60 ml/min/1.73 sqM) Glucose (74-99) mg/dL Calcium (8.4-10.2) mg/dL Total Bilirubin (0.2-1.3) mg/dL AST (14-36) U/L ALT (4-34) U/L Alkaline Phosphatase (38-126) U/L Troponin I <0.012 (0.000-0.034) ng/mL Total Protein (6.3-8.2) g/dL Albumin (3.5-5.0) g/dL Lipase (23-300) U/L Urine Color Urine Appearance (Clear) Urine pH (5.0-8.0) Ur Specific [place] (1.001-1.035) Urine Protein (Negative) Urine Glucose (UA) (Negative) Urine Ketones (Negative) Urine Blood (Negative) Urine Nitrite (Negative) Urine Bilirubin (Negative) Urine Urobilinogen (<2.0) mg/dL Ur Leukocyte Esterase (Negative) Urine RBC (0-5) /hpf Urine WBC (0-5) /hpf Ur Squamous Epith Cells (0-4) /hpf Amorphous Sediment (None) /hpf Urine Mucus (None) /hpf Disposition Clinical Impression: Epigastric pain, Diarrhea Disposition: HOME SELF-CARE Condition: Good Instructions (If sedation given, give patient instructions): Peptic Ulcer (ED), Gastritis (ED) Additional Instructions: Please use medication as discussed. Please follow-up with family doctor in the next 2 days, recommend GI follow-up in next week. Please return to emergency room if the symptoms increase or worsen or for any other concerns. Prescriptions: Pantoprazole Sodium [Protonix] 40 mg PO DAILY 14 Days #14 tablet. Ondansetron Odt [Zofran Odt] 4 mg PO Q8HR PRN 3 Days #9 tab PRN Reason: Nausea Is patient prescribed a controlled substance at d/c from ED?: No Referrals: None,Stated [Primary Care Provider] - 1-2 days Jonathan Aceves MD [STAFF PHYSICIAN] - 1-2 days Time of Disposition: 20:20
[2019-10-29 19:08] LABS: Basophils # (A) 0.1 k/uL (0-0.2); Basophils % (A) 1 %; Eosinophils # (A) 0.2 k/uL (0-0.7); Eosinophils % (A) 2 %; HCT 43.2 % (34.0-46.0); HGB 13.7 gm/dL (11.4-16.0); Lymphocytes # (A) 3.7 k/uL (1.0-4.8); Lymphocytes % (A) 33 %; MCH 27.6 pg (25.0-35.0); MCHC 31.7 g/dL (31.0-37.0); MCV 86.9 fL (80.0-100.0); Mean Platelet Volume 7.3; Monocytes # (A) 0.6 k/uL (0-1.0); Monocytes % (A) 5 %; Neutrophils # (A) 6.5 k/uL (1.3-7.7); Neutrophils % (A) 58 %; Platelet Count 462 k/uL (150-450); RBC 4.97 m/uL (3.80-5.40); RDW 12.7 % (11.5-15.5); WBC 11.2 k/uL (3.8-10.6)
[2019-10-29 19:13] LABS: ALT 10 U/L (4-34); AST 18 U/L (14-36); African American GFR (CKD) >90 (>60 ml/min/1.73 sqM); Albumin 4.2 g/dL (3.5-5.0); Alkaline Phosphatase 127 U/L (38-126); Anion Gap 6 mmol/L; Blood Urea Nitrogen 10 mg/dL (7-17); Calcium 9.2 mg/dL (8.4-10.2); Carbon Dioxide 23 mmol/L (22-30); Chloride 110 mmol/L (98-107); Glucose 102 mg/dL (74-99); Non-African American GFR(CKD) 81 (>60 ml/min/1.73 sqM); Potassium 4.1 mmol/L (3.5-5.1); Sodium 139 mmol/L (137-145); Total Bilirubin 0.3 mg/dL (0.2-1.3); Total Protein 7.2 g/dL (6.3-8.2)
[2019-10-29 19:26] LABS: Amorphous Sediment,Urine Occasional /hpf; Appearance,Urine Cloudy (Clear); Bilirubin,Urine Negative (Negative); Blood,Urine Trace (Negative); Color,Urine Yellow; Glucose,Urine (UA) Negative (Negative); Ketones,Urine Negative (Negative); Leukocyte Esterase,Urine Moderate (Negative); Mucus,Urine Occasional /hpf; Nitrite,Urine Negative (Negative); PH, Urine 6.5 (5.0-8.0); Protein,Urine Trace (Negative); RBC,Urine 1 /hpf (0-5); Specific Gravity,Urine 1.026 (1.001-1.035); Squamous Epithelial Cell,Urine 7 /hpf (0-4); Urobilinogen,Urine <2.0 mg/dL (<2.0); WBC,Urine 6 /hpf (0-5)
--- NOTE | 2019-10-29 19:58 | CT ---
EXAMINATION TYPE: CT abdomen pelvis w con DATE OF EXAM: 10/29/2019 COMPARISON: None HISTORY: abdominal pain and nausea X [address] DLP: 1090.4 mGycm Automated exposure control for dose reduction was used. TECHNIQUE: Helical acquisition of images from the lung bases through the pelvis have been completed. CONTRAST: Performed without Oral Contrast and with IV Contrast, patient injected with 100 mL of Isovue 300. FINDINGS: LUNG BASES: No significant abnormality is appreciated. AORTA: No significant abnormality is appreciated. LIVER/GB: Patient is post cholecystectomy. There is no evident liver mass.. PANCREAS: No significant abnormality is seen. SPLEEN: No significant abnormality is seen. ADRENALS: No significant abnormality is seen. KIDNEYS: No significant abnormality is seen. REPRODUCTIVE ORGANS: Not seen BOWEL: Fluid-filled loops of small bowel noted throughout. FREE AIR: No Free Air visible. ASCITES: None visible. PELVIC ADENOPATHY: None visualized. RETROPERITONEAL ADENOPATHY: No Retroperitoneal Adenopathy visible. URINARY BLADDER: No significant abnormality is seen. OSSEOUS STRUCTURES: No significant abnormality is seen. IMPRESSION: CORRELATE FOR POSSIBLE ENTERITIS. POSTOP CHANGES.
[2019-10-29] MEDS ORDERED: MAG HYDROX/AL HYDROX/SIMETH 30 ML, HYOSCYAMINE ELIXIR 10 ML, LIDOCAINE VISCOUS 2% 10 ML PO STA ×3 (20:17)
[2019-10-29] MEDS ORDERED: ONDANSETRON ODT 4 MG TAB PO STA (20:25)
[2019-10-29 20:47] VITALS: BP 127/80; PULSE 90; TEMP 98
== END 2019-10-29 20:47 | disposition home or self-care (01) ==
LOC: EC 18:21
DX: M50.20 Other cervical disc displacement, unspecified cervical region (principal); R10.13 Epigastric pain; R19.7 Diarrhea, unspecified; G43.909 Migraine, unspecified, not intractable, without status migrainosus; F31.9 Bipolar disorder, unspecified; F17.290 Nicotine dependence, other tobacco product, uncomplicated; Z79.899 Other long term (current) drug therapy; Z91.048 Other nonmedicinal substance allergy status; Z91.09 Other allergy status, other than to drugs and biological substances; Z88.5 Allergy status to narcotic agent; Z90.49 Acquired absence of other specified parts of digestive tract; Z90.710 Acquired absence of both cervix and uterus
CPT/HCPCS: 36415; 93005; 80053; 83690; 84484; 85025; 81001; 74177; 99284; 96374; C9113; Q9967

== ENCOUNTER 2019-11-26 08:31 | Day surgery (SDC) | payer MEDICARE ==
[2019-11-21 14:21] VITALS: BMI 32.0
[~2019-11-26 08:31] MED LIST: LACTATED RINGERS 1,000 ML IV SCH; LIDOCAINE 1% (10MG/ML) FOR IV START INTRADERMA PRN
[2019-11-26 08:54] VITALS: TEMP 97.3
[2019-11-26] MEDS ORDERED: ONDANSETRON 4 MG/2 ML VIAL ONE (09:31)
[2019-11-26] MEDS ORDERED: ONDANSETRON 4 MG/2 ML VIAL IVP ONE (09:35)
[2019-11-26] MEDS ORDERED: LIDOCAINE HCL/PF 20 MG/ML 10 ML AMP ONE (09:58)
[2019-11-26] MEDS ORDERED: PROPOFOL 10 MG/ML 20 ML VIAL IV ONE (09:58)
--- NOTE | 2019-11-26 10:25 | P.PCN ---
Date of Procedure: 11/26/19 Description of Procedure: BRIEF HISTORY: Patient is a 44-year-old female presenting for EGD for evaluation of epigastric pain. Patient reports heartburn, emesis, hunger pains. Recently seen in the GI clinic. Remote history of EGD 15 years ago. PROCEDURE PERFORMED: Esophagogastroduodenoscopy. PREOPERATIVE DIAGNOSIS: Epigastric abdominal pain, GERD. ESTIMATED BLOOD LOSS: Minimal. IV sedation per anesthesia. PROCEDURE: After informed consent was obtained, the patient was brought into the endoscopy unit. IV sedation was administered by Anesthesia under continuous monitoring. Initially the Olympus GIF-190 video endoscope was inserted into the mouth. Esophagus intubated without any difficulty. It was gradually advanced into the stomach and duodenum and carefully examined. The bulb and the second part of the duodenum appeared normal, with biopsies taken. The scope at this time was withdrawn to the stomach, adequately insufflated with air, and upon careful examination, mucosa of the antrum, body, cardia and the fundus appeared normal, except for some mild scattered erythema in the antrum and body suggestive of mild gastritis biopsies taken. The scope was then withdrawn into the esophagus. The GE junction was located at 36 cm from the incisors, with biopsies taken. A 1 cm hiatal hernia was noted. The esophagus appeared normal. There were no erosions or ulcerations seen and the patient tolerated the procedure well. IMPRESSION: 1. Mild gastritis. 2. Biopsies taken of the duodenum, antrum and body and GE junction. RECOMMENDATIONS: The findings of this examination were discussed with the patient . Okay to resume diet. Okay to resume medications. Follow-up in GI clinic next week as scheduled for results of biopsies and for further medical management.
[2019-11-26] MEDS ORDERED: DEXAMETHASONE SOD PHOSPHATE 10 MG/ML 1 ML VIAL IV ONE (10:37)
[2019-11-26 10:41] VITALS: BP 111/68; PULSE 52; RESP 18
== END 2019-11-26 11:10 | disposition home or self-care (01) ==
LOC: ORWHC2ENDO 08:31
PROVIDERS: ATTEND Internal Medicine
DX: K29.50 Unspecified chronic gastritis without bleeding (principal); K44.9 Diaphragmatic hernia without obstruction or gangrene; G43.909 Migraine, unspecified, not intractable, without status migrainosus; F17.290 Nicotine dependence, other tobacco product, uncomplicated; Z90.49 Acquired absence of other specified parts of digestive tract; Z90.710 Acquired absence of both cervix and uterus; Z79.899 Other long term (current) drug therapy; Z88.5 Allergy status to narcotic agent; Z91.048 Other nonmedicinal substance allergy status; Z91.09 Other allergy status, other than to drugs and biological substances
CPT/HCPCS: 88305; 43239; J1100; J2405; J2001; J2704

== ENCOUNTER → 2022-07-13 | Outpatient (CLI) | payer MEDICARE, OTHER ==
--- NOTE | 2022-07-13 14:02 | CT ---
EXAMINATION TYPE: CT brain wo con DATE OF EXAM: 07/13/2022 COMPARISON: CT brain October 14, 2019 HISTORY: Visual and hearing disturbances. CT DLP: 1123.20 mGycm. Automated Exposure Control for Dose Reduction was Utilized. TECHNIQUE: CT scan of the head is performed without contrast. FINDINGS: There is no acute intracranial hemorrhage, mass effect, or midline shift identified. The ventricles and sulci are within normal limits in size. Dillon-white matter differentiation is maintain ed. The globes are intact and the visualized sinuses are clear. IMPRESSION: No acute intracranial hemorrhage or midline shift is seen. No significant change from pr ior CT.
== END | disposition home or self-care (01) ==
LOC: RADCTMAIN 12:59
PROVIDERS: ATTEND Family Medicine
DX: H53.9 Unspecified visual disturbance (principal)
CPT/HCPCS: 70450

== ENCOUNTER 2022-07-14 18:05 | Emergency (ER) | payer MEDICARE ==
[2022-07-14 18:26] VITALS: RESP 18
--- NOTE | 2022-07-14 19:28 | ED ---
General Adult HPI - General Chief complaint: Headache Stated complaint: vision issues, headache Time Seen by Provider: 07/14/22 18:25 Source: patient Mode of arrival: ambulatory Limitations: no limitations - History of Present Illness Initial comments: 46-year-old female presents the emergency department reporting migraine headache. States that she will occasionally get migraines. Over the past 2 days she has had significant migraines with floaters in both of her eyes. She has seen her primary care doctor in regards to migraines and does have nurtec. States she has been taking this medication without any improvement in her symptoms. Her primary care doctor place her on steroids which also have not been helping. Headache is global. No sudden onset or maximal intensity. Does have photophobia. No neck pain or stiffness. No fevers. No history of head trauma. Has never seen a neurologist for her headaches. Denies any acute visual disturbance at this time. 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 - Related Data Home Medications Medication Instructions Recorded Confirmed Acetaminophen [Tylenol] 325 mg PO Q6H PRN 07/14/22 07/14/22 Cholecalciferol [Vitamin D3 (25 50 mcg PO DAILY 07/14/22 07/14/22 Mcg = 1000 Iu)] Allergies Allergy/AdvReac Type Severity Reaction Status Date / Time adhesive Allergy Rash/Hives Verified 07/14/22 18:37 Bleach (Sodium Hypochlorite) Allergy Unknown Verified 07/14/22 18:37 codeine phosphate AdvReac ringing Verified 07/14/22 18:37 [From Tylenol-Codeine #3] ears Review of Systems ROS Statement: Those systems with pertinent positive or pertinent negative responses have been documented in the HPI. ROS Other: All systems not noted in ROS Statement are negative. Past Medical History Past Medical History: GERD/Reflux, Musculoskeletal Disorder Additional Past Medical History / Comment(s): hx. migraines, herniated discs neck & back, frequent sinus infections History of Any Multi-Drug Resistant Organisms: None Reported Past Surgical History: Adenoidectomy, Section, Cholecystectomy, Hysterectomy, Tonsillectomy Additional Past Surgical History / Comment(s): laparoscopy, D & C, sinus surgery Past Anesthesia/Blood Transfusion Reactions: Motion Sickness, Postoperative Nausea & Vomiting (PONV) Past Psychological History: Bipolar Smoking Status: Vaper Past Alcohol Use History: None Reported Past Drug Use History: None Reported - Past Family History Mother Family Medical History: No Reported History General Exam Limitations: no limitations General appearance: alert, in no apparent distress Head exam: Present: atraumatic, normocephalic, normal inspection Eye exam: Present: normal appearance, PERRL, EOMI. Absent: scleral icterus, conjunctival injection, periorbital swelling ENT exam: Present: mucous membranes moist, other (Cobblestoning of posterior pharynx) Neck exam: Present: normal inspection. Absent: tenderness, meningismus, lymphadenopathy Respiratory exam: Present: normal lung sounds bilaterally. Absent: respiratory distress, wheezes, rales, rhonchi, stridor Cardiovascular Exam: Present: regular rate, normal rhythm, normal heart sounds. Absent: systolic murmur, diastolic murmur, rubs, gallop, clicks GI/Abdominal exam: Present: soft, normal bowel sounds. Absent: distended, tenderness, guarding, rebound, rigid Extremities exam: Present: normal inspection, full ROM, normal capillary refill. Absent: tenderness, pedal edema, joint swelling, calf tenderness Back exam: Present: normal inspection Neurological exam: Present: alert, oriented X3, CN II-XII intact Psychiatric exam: Present: normal affect, normal mood Skin exam: Present: warm, dry, intact, normal color. Absent: rash Course Vital Signs 07/14/22 07/14/22 18:23 21:01 Temperature 97.8 F 98.0 F Pulse Rate 94 72 Respiratory 18 18 Rate Blood Pressure 136/92 121/81 O2 Sat by Pulse 98 98 Oximetry Medical Decision Making - Medical Decision Making Was pt. sent in by a medical professional or institution (, PA, [facility], urgent care, hospital, or fdc...) When possible be specific @ -No Did you speak to anyone other than the patient for history (EMS, parent, family, police, friend...)? What history was obtained from this source @ -No Did you review nursing and triage notes (agree or disagree)? Why? @ -I reviewed and agree with nursing and triage notes Were old charts reviewed (outside hosp., previous admission, EMS record, old EKG, old radiological studies, urgent care reports/EKG's, fdc records)? Report findings @ -No old charts were reviewed Differential Diagnosis (chest pain, altered mental status, abdominal pain women, abdominal pain men, vaginal bleeding, weakness, fever, dyspnea, syncope, headache, dizziness, GI bleed, back pain, seizure, CVA, palpatations, mental health, musculoskeletal)? @ -Differential Headache: Migraine, tension, cluster, carbon monoxide, central venous thrombosis, pension karma temporal arteritis, acute closure glaucoma, intercranial hemorrhage, mastoiditis, sinusitis, head injury, this is not meant to be an all-inclusive list. EKG interpreted by me (3pts min.). @ -Not done X-rays interpreted by me (1pt min.). @ -None done CT interpreted by me (1pt min.). @ -None done U/S interpreted by me (1pt. min.). @ -None done What testing was considered but not performed or refused? (CT, X-rays, U/S, labs)? Why? @ -CT however the patient had an outpatient CT done yesterday What meds were considered but not given or refused? Why? @ -None Did you discuss the management of the patient with other professionals (professionals i.e. , PA, [facility], lab, RT, psych nurse, social work manager, beef cattle farm manager, teacher, property utilization officer, case supervisor)? Give summary @ -No Was smoking cessation discussed for >3mins.? @ -No Was critical care preformed (if so, how long)? @ -No Were there social determinants of health that impacted care today? How? (Homelessness, low income, unemployed, alcoholism, drug addiction, transportation, low edu. Level, literacy, decrease access to med. care, assisted, rehab)? @ -No Was there de-escalation of care discussed even if they declined (Discuss DNR or withdrawal of care, Hospice)? DNR status @ -No What co-morbidities impacted this encounter? (DM, HTN, Smoking, COPD, CAD, Cancer, CVA, ARF, Chemo, Hep., AIDS, mental health diagnosis, sleep apnea, morbid obesity)? @ -Migraines Was patient admitted / discharged? Hospital course, mention meds given and route, prescriptions, significant lab abnormalities, going to OR and other pertinent info. @ -Upon arrival patient is placed in room 13. Thorough history and physical exam is performed. IV access is established. Patient is given a migraine cocktail. Laboratory studies are conducted. Patient reevaluated and reports improvement in her symptoms. She is requesting discharge or patient will be discharged home. Objective felt the primary care doctor in regards to her symptoms. Return for any new or worsening symptoms. Patient agreeable discharged home in stable condition Undiagnosed new problem with uncertain prognosis? @ -Yes Drug Therapy requiring intensive monitoring for toxicity (Heparin, Nitro, Insulin, Cardizem)? @ -No Were any procedures done? @ -No Diagnosis/symptom? @ -Acute migraine Acute, or Chronic, or Acute on Chronic? @ -Acute on chronic Uncomplicated (without systemic symptoms) or Complicated (systemic symptoms)? @ -Complicated Side effects of treatment? @ -No Exacerbation, Progression, or Severe Exacerbation? @ -yes Poses a threat to life or bodily function? How? (Chest pain, USA, PR, pneumonia, PE, COPD, DKA, ARF, appy, cholecystitis, CVA, Diverticulitis, Homicidal, Suicidal, threat to staff... and all critical care pts) @ -No - Lab Data Result diagrams: 07/14/22 19:54 07/14/22 19:54 Lab Results 07/14/22 07/14/22 Range/Units 19:54 19:54 WBC 15.0 H (3.8-10.6) k/uL RBC 5.28 (3.80-5.40) m/uL Hgb 14.7 (11.4-16.0) gm/dL Hct 44.9 (34.0-46.0) % MCV 85.0 (80.0-100.0) fL MCH 27.9 (25.0-35.0) pg MCHC 32.8 (31.0-37.0) g/dL RDW 14.3 (11.5-15.5) % Plt Count 447 (150-450) k/uL MPV 7.3 Neutrophils % (Manual) 47 % Lymphocytes % (Manual) 48 % Monocytes % (Manual) 5 % Neutrophils # (Manual) 7.05 (1.3-7.7) k/uL Lymphocytes # (Manual) 7.20 H (1.0-4.8) k/uL Monocytes # (Manual) 0.75 (0-1.0) k/uL Nucleated RBCs 0 (0-0) /100 WBC Manual Slide Review Performed Sodium 138 (137-145) mmol/L Potassium 4.2 (3.5-5.1) mmol/L Chloride 101 (98-107) mmol/L Carbon Dioxide 30 (22-30) mmol/L Anion Gap 7 mmol/L BUN 11 (7-17) mg/dL Creatinine 0.79 (0.52-1.04) mg/dL Est GFR (CKD-EPI)AfAm >90 (>60 ml/min/1.73 sqM) Est GFR (CKD-EPI)NonAf >90 (>60 ml/min/1.73 sqM) Glucose 97 (74-99) mg/dL Calcium 9.2 (8.4-10.2) mg/dL Total Bilirubin 0.3 (0.2-1.3) mg/dL AST 25 (14-36) U/L ALT 22 (4-34) U/L Alkaline Phosphatase 92 (38-126) U/L Total Protein 7.1 (6.3-8.2) g/dL Albumin 4.3 (3.5-5.0) g/dL Disposition Clinical Impression: Migraine Disposition: HOME SELF-CARE Condition: Stable Instructions (If sedation given, give patient instructions): Acute Headache (ED) Additional Instructions: Please follow-up with your doctor for further evaluation of your headaches. return for any new or worsening symptoms Is patient prescribed a controlled substance at d/c from ED?: No Referrals: Wilder Neil MD [Primary Care Provider] - 1-2 days Time of Disposition: 20:41
[2022-07-14] MEDS ORDERED: DEXAMETHASONE SOD PHOSPHATE 10 MG/ML 1 ML VIAL IVP STA (19:30)
[2022-07-14] MEDS ORDERED: KETOROLAC 15 MG/ML 1 ML VIAL IVP STA (19:30)
[2022-07-14] MEDS ORDERED: MAGNESIUM SULFATE-D5W PMX 1 GM in DEXTROSE/WATER 1 100ML.BAG IVPB ONE (19:30)
[2022-07-14] MEDS ORDERED: diphenhydrAMINE 50 MG/ML 1 ML VIAL IVP STA (19:30)
[2022-07-14] MEDS ORDERED: METOCLOPRAMIDE 5 MG/ML 2 ML VIAL IVP STA (19:30)
[2022-07-14 20:02] LABS: HCT 44.9 % (34.0-46.0); HGB 14.7 gm/dL (11.4-16.0); MCH 27.9 pg (25.0-35.0); MCHC 32.8 g/dL (31.0-37.0); Mean Platelet Volume 7.3; Platelet Count 447 k/uL (150-450); RBC 5.28 m/uL (3.80-5.40); RDW 14.3 % (11.5-15.5)
[2022-07-14 20:14] LABS: ALT 22 U/L (4-34); AST 25 U/L (14-36); African American GFR (CKD) >90 (>60 ml/min/1.73 sqM); Albumin 4.3 g/dL (3.5-5.0); Alkaline Phosphatase 92 U/L (38-126); Anion Gap 7 mmol/L; Blood Urea Nitrogen 11 mg/dL (7-17); Calcium 9.2 mg/dL (8.4-10.2); Carbon Dioxide 30 mmol/L (22-30); Chloride 101 mmol/L (98-107); Glucose 97 mg/dL (74-99); Non-African American GFR(CKD) >90 (>60 ml/min/1.73 sqM); Potassium 4.2 mmol/L (3.5-5.1); Sodium 138 mmol/L (137-145); Total Bilirubin 0.3 mg/dL (0.2-1.3); Total Protein 7.1 g/dL (6.3-8.2)
[2022-07-14 20:38] LABS: Monocytes # (M) 0.75 k/uL (0-1.0); Neutrophils # (M) 7.05 k/uL (1.3-7.7); Neutrophils % (M) 47 %; Nucleated Red Blood Cells 0 /100 WBC (0-0); Total Cells Counted 100
[2022-07-14 21:02] VITALS: BP 121/81; PULSE 72; TEMP 98
== END 2022-07-14 21:02 | disposition home or self-care (01) ==
LOC: EC 18:05
DX: G43.909 Migraine, unspecified, not intractable, without status migrainosus (principal); F17.290 Nicotine dependence, other tobacco product, uncomplicated; Z86.59 Personal history of other mental and behavioral disorders; Z88.5 Allergy status to narcotic agent; Z88.6 Allergy status to analgesic agent; Z90.49 Acquired absence of other specified parts of digestive tract
CPT/HCPCS: 96375 ×5; 96361; 99283 ×2; 96365; 96374; 36415; 80053; 85025; J1200; J1100; J2765; J3475; J1885